=== PATIENT | female | born 1950 | race Caucasian/White ===

== ENCOUNTER 2017-03-10 19:31 | Inpatient (IN) | payer MEDICARE, OTHER ==
[~2017-03-10] VITALS: Ht 157.5 cm; Wt 51.7 kg
--- NOTE | 2017-03-10 19:35 | NUR ---
67 YO FEMALE BB [id number]. EPIGASTRIC PAIN & N/V x2 TODAY. PT ASSISTED TO ER BED BY EMS. PT GOWNED, PLACED ON FABRICATOR INDUSTRIAL FURNACE. SKIN WARM AND DRY, RR EVEN AND UNLABORED. AWAITING ORDERS FROM PROVIDER, WILL CONTINUE TO MONITOR
--- NOTE | 2017-03-10 19:52 | NUR ---
EMT AT BED SIDE FOR EKG
[2017-03-10] MEDS ORDERED: METO200T35 PO (19:58)
[2017-03-10] MEDS ORDERED: CITA10TA17 PO (19:58)
[2017-03-10] MEDS ORDERED: ZOLP5TAB2 PO (19:58)
[2017-03-10] MEDS ORDERED: LEVO75TA7 PO (19:58)
[2017-03-10] MEDS ORDERED: LOSA50TA21 PO (19:58)
[2017-03-10] MEDS ORDERED: RIVA10TA PO (19:58)
[2017-03-10] MEDS ORDERED: ATOR40TA PO (19:58)
[2017-03-10] MEDS ORDERED: MORPHINE SULFATE INJ 4 MG/ML DISP.SYRIN ONE ×2 (20:04→21:23)
[2017-03-10] MEDS ORDERED: IV SET PRIMARY 1 EA INFUS.SET MC ONE (20:05)
[2017-03-10] MEDS ORDERED: NITROGLYCERIN PACKET 1 GM PACKET ONE (20:05)
[2017-03-10] MEDS ORDERED: ONDANSETRON HCL/PF 4 MG/2 ML VIAL ONE ×2 (20:05→21:23)
[2017-03-10] MEDS ORDERED: IV NS 0.9% 1,000 ML ONE (20:05)
[2017-03-10 20:22] LABS: BASOPHILS # (AUTO) 0.3 /CMM (0.0-0.2); BASOPHILS % (AUTO) 3.6 % (0.0-2.0); EOSINOPHILS # (AUTO) 0.1 /CMM (0.0-0.7); EOSINOPHILS % (AUTO) 1.2 % (0.0-6.0); HEMATOCRIT 43 % (33-45); HEMOGLOBIN 13.9 g/dL (11.5-14.8); LYMPHOCYTES # (AUTO) 1.9 /CMM (0.8-4.8); LYMPHOCYTES % (AUTO) 23.6 % (20.0-44.0); MEAN CORPUSCULAR HEMOGLOBIN 28 PG (26.0-33.0); MEAN CORPUSCULAR HGB CONC 32 g/dl (31.0-36.0); MEAN CORPUSCULAR VOLUME 86 fL (82-100); MONOCYTES # (AUTO) 0.4 /CMM (0.1-1.30); MONOCYTES % (AUTO) 4.9 % (2.0-12.0); NEUTROPHILS # (AUTO) 5.4 /CMM (1.8-8.9); NEUTROPHILS % (AUTO) 66.7 % (43.0-81.0); PLATELET COUNT (AUTO) 313 /CMM (150-450); RDW COEFFICIENT OF VARIATION 13.6 (11.5-15.0); RED BLOOD CELL COUNT(AUTO) 5.02 MIL/uL (4.0-5.2); WHITE BLOOD COUNT (AUTO) 8.1 K/uL (4.3-11.0)
--- NOTE | 2017-03-10 20:23 | NUR ---
18G RIGHT AC IV STARTED, BLOOD SAMPLE OBATIEND AND SENT TO LAB. MEDICATED PT ORDERED
[2017-03-10] MEDS ORDERED: ONDANSETRON HCL/PF 4 MG/2 ML VIAL IVP ONE (20:30)
[2017-03-10] MEDS ORDERED: MORPHINE SULFATE INJ 2 MG/ML DISP.SYRIN IV ONE ×2 (20:30→21:30)
[2017-03-10] MEDS ORDERED: IV NS 0.9% 1,000 ML BAG IV ONE (20:30)
[2017-03-10] MEDS ORDERED: NITROGLYCERIN PACKET 1 GM PACKET TOP ONE (20:30)
[2017-03-10 20:33] LABS: CALCIUM, SERUM 9.1 mg/dL (8.5-10.1); CARBON DIOXIDE 32 mmol/L (21-32); CHLORIDE 103 mmol/L (98-107); CREATININE 0.8 mg/dL (0.6-1.3); GLUCOSE 99 mg/dL (74-106); POTASSIUM 3.5 mmol/L (3.5-5.1); SODIUM SERUM 139 mmol/L (136-145); UREA NITROGEN, BLOOD 25 mg/dL (7-18)
[2017-03-10 20:37] LABS: PROTHROMBIN TIME 10.4 SECS (9.5-12.7)
[2017-03-10 20:42] LABS: TROPONIN I < 0.017 ng/mL (0.00-0.056)
--- NOTE | 2017-03-10 21:20 | NUR ---
CALLED NURSING SUP. FOR TELE BED
--- NOTE | 2017-03-10 21:35 | NUR ---
MEDICATED PT PER VERBAL ORDER; 4 MG ZOFRAN IVP
--- NOTE | 2017-03-10 21:35 | NUR ---
REPORT GIVEN TO RN FOR TELE ADMISSION
[2017-03-10] MEDS: ONDANSETRON HCL/PF 4 MG/2 ML VIAL IVP PRN (21:56)
[2017-03-10 22:00] VITALS: BP 159/85
[2017-03-10] MEDS ORDERED: Z GUARD REMEDY 2 OZ OINT TP PRN (22:00)
[2017-03-10] MEDS: ATORVASTATIN 40 MG TABLET PO SCH (22:00)
[2017-03-10] MEDS ORDERED: ZOLPIDEM TARTRATE 5 MG TABLET PO PRN ×2 (22:00)
[2017-03-10] MEDS ORDERED: MAGNESIUM HYDROXIDE 30 ML UDC PO PRN (22:00)
[2017-03-10] MEDS ORDERED: ACETAMINOPHEN 325 MG TABLET PO PRN (22:00)
[2017-03-10] MEDS ORDERED: ONDANSETRON HCL/PF 4 MG/2 ML VIAL IV PRN (22:00)
--- NOTE | 2017-03-10 22:00 | NUR ---
RECEIVED PATIENT FROM ER, WITH DX OF CHEST PAIN, ALERT AND ORIENTED X4, CALM, NO SOB, NO RESPIRATORY DISTRESS, 02 SAT AT ROOM AIR 96%, LUNG SOUNDS ARE CLEAR, ABDOMEN SOFT AND NON-TENDER, COMPLAINING OF EPIGASTRIC PAIN OF 4/10. RECEIVED ZOFRAN AND MORPHINE IN ER. RIGHT AC PERIPHERAL LINE IS PATENT AND INFUSING WELL WITH NS. GENERAL SKIN CONDITION IS CLEAR AND INTACT. STEADY GAIT, CONTINENT OF BLADDER AND BOWEL, INDEPENDENT WITH ADLS. PATIENT REQUESTED PM MEDICATIONS TO BE GIVEN, ORIENTED TO ROOM, USE OF CALL LIGHT, WILL CONTINUE TO MONITOR.
[2017-03-10 22:30] VITALS: BP 159/85
--- NOTE | 2017-03-10 22:47 | NUR ---
NEW ORDERS FROM DR. BRADLEY, TO CONTINUE HOME MEDICATIONS INCLUDING FLECAINIDE 100 MG PO Q12 HRS AND CHANGE THE FREQUENCY OF LOSARTAN 50 MG TO Q12HRS. ORDERS NOTED AND CARRIED OUT.
[2017-03-10] MEDS ORDERED: ATORVASTATIN 40 MG TABLET ONE (22:51)
[2017-03-10] MEDS ORDERED: LOSARTAN POTASSIUM 50 MG TABLET ONE (22:51)
[2017-03-10] MEDS ORDERED: MAG HYDROX/AL HYDROX/SIMETH 30 ML UDC ONE (23:00)
[2017-03-10] MEDS ORDERED: FLECAINIDE ACETATE (100 MG) 100 MG TABLET PO SCH (23:00)
[2017-03-10] MEDS: MAG HYDROX/AL HYDROX/SIMETH 30 ML UDC PO PRN (23:08)
[2017-03-10] MEDS: LOSARTAN POTASSIUM 50 MG TABLET PO SCH (23:09)
--- NOTE | 2017-03-10 23:15 | NUR ---
LIPITOR NOT GIVEN, PER PATIENT, TAKEN IN AM. FLECAINIDE NOT GIVEN, NON FORMULARY MEDICATION
[2017-03-11] VITALS: BP 131/65
[2017-03-11] MEDS ORDERED: MORPHINE SULFATE INJ 2 MG/ML DISP.SYRIN ONE ×2 (00:37→02:54)
[2017-03-11] MEDS: MORPHINE SULFATE INJ 2 MG/ML DISP.SYRIN IV PRN ×3 (00:45→22:16)
[2017-03-11] MEDS ORDERED: IV SET PRIMARY PUMP SET 1 EA INFUS.SET MC ONE (01:45)
--- NOTE | 2017-03-11 02:38 | NUR ---
PATIENT MOVED TO ROOM 309-1.
--- NOTE | 2017-03-11 03:27 | NUR ---
TROPONIN LEVEL DRAWN, NEGATIVE.
--- NOTE | 2017-03-11 05:38 | NUR ---
PATIENT SAYS "I FEEL MUCH BETTER." NO NAUSEA REPORTED
[2017-03-11 05:39] VITALS: BP 129/75
--- NOTE | 2017-03-11 06:48 | NUR ---
PATIENT ALERT AND AWAKE, NO SOB, NO RESPIRATORY DISTRESS, ON TELE MONITORING, SINUS BRADYCARDIA WITH HR IN THE 50'S. COMPLAINING OF CHEST PAIN, TROPONIN LEVEL IS NEGATIVE TAKEN X2, RIGHT AC PERIPHERAL LINE IS PATENT AND INTACT, NEEDS ATTENDED, CALL LIGHT WITHIN REACH
[2017-03-11] MEDS ORDERED: NITROGLYCERIN 0.4 MG/TAB BOTTLE ONE (07:00)
[2017-03-11] MEDS: NITROGLYCERIN 0.4 MG/TAB BOTTLE SL PRN ×8 (07:10→23:24)
--- NOTE | 2017-03-11 07:27 | NUR ---
SEEN BY DR. ESPOSITO, AFTER MD LEFT, PT FEELING CHEST PAIN DESCRIBED HEAVY AND WITH BURNING SENSATION. MD ORDERED NITRO SL AND EKG STAT. PATIENT GIVEN NITRO SL X2 5 MINUTES APART, PT VERBALIZED FEELING A LITTLE BETTER. STARTED NEW LINE TO LEFT WRIST #22.
[2017-03-11] MEDS ORDERED: NITROGLYCERIN 0.4 MG/TAB BOTTLE SL PRN (07:30)
[2017-03-11] MEDS: PANTOPRAZOLE 40 MG TABLET.DR PO SCH (07:30)
[2017-03-11 07:37] LABS: BASOPHILS % (AUTO) 0.3 % (0.0-2.0); EOSINOPHILS # (AUTO) 0.1 /CMM (0.0-0.7); HEMATOCRIT 42 % (33-45); HEMOGLOBIN 13.7 g/dL (11.5-14.8); LYMPHOCYTES # (AUTO) 1.9 /CMM (0.8-4.8); LYMPHOCYTES % (AUTO) 19.1 % (20.0-44.0); MEAN CORPUSCULAR HEMOGLOBIN 29 PG (26.0-33.0); MEAN CORPUSCULAR HGB CONC 33 g/dl (31.0-36.0); MEAN CORPUSCULAR VOLUME 87 fL (82-100); MONOCYTES # (AUTO) 0.6 /CMM (0.1-1.30); MONOCYTES % (AUTO) 6.2 % (2.0-12.0); NEUTROPHILS # (AUTO) 7.2 /CMM (1.8-8.9); NEUTROPHILS % (AUTO) 73.4 % (43.0-81.0); PLATELET COUNT (AUTO) 280 /CMM (150-450); RDW COEFFICIENT OF VARIATION 14.3 (11.5-15.0); RED BLOOD CELL COUNT(AUTO) 4.78 MIL/uL (4.0-5.2); WHITE BLOOD COUNT (AUTO) 9.8 K/uL (4.3-11.0)
--- NOTE | 2017-03-11 07:45 | NUR ---
OCCASIONAL BABYSITTER OPENING NOTE PATIENT IS ALERT AND ORIENTED x4. NO PAIN AT THIS TIME. NO SOB OR DISTRESS NOTED. NO CHEST PAIN AT THIS TIME. CALL LIGHT WITHIN REACH. SAFETY MEASURES IMPLEMENTED. ABLE TO COMMUNICATE NEEDS. IV INTACT AND PATENT NO REDNESS OR SWELLING NOTED. MYOCARDIAL STRESS TEST FOR 03/12. CONSENT IN CHART. WILL CONTINUE TO MONITOR
[2017-03-11 07:56] LABS: CALCIUM, SERUM 8.9 mg/dL (8.5-10.1); CREATININE 0.6 mg/dL (0.6-1.3); MAGNESIUM 2.3 mg/dL (1.8-2.4); PHOSPHORUS 3.8 mg/dL (2.5-4.9); POTASSIUM 3.4 mmol/L (3.5-5.1)
[2017-03-11] MEDS: ATORVASTATIN 40 MG TABLET PO SCH (08:03)
[2017-03-11] MEDS: CITALOPRAM HYDROBROMIDE 10 MG TABLET PO SCH (08:04)
[2017-03-11] MEDS: LEVOTHYROXINE SODIUM 75 MCG TABLET PO SCH (08:04)
[2017-03-11] MEDS: LOSARTAN POTASSIUM 50 MG TABLET PO SCH ×2 (08:04→23:17)
[2017-03-11] MEDS: HYDROCODONE/APAP 5/325MG 1 EACH TABLET PO PRN ×3 (08:05→23:44)
[2017-03-11 08:40] LABS: ALBUMIN 3.4 g/dL (3.4-5.0); BILIRUBIN,DIRECT 0.2 mg/dL (0.0-0.2); BILIRUBIN,TOTAL 1.1 mg/dL (0.2-1.0); TOTAL PROTEIN, SERUM 7.2 g/dL (6.4-8.2)
[2017-03-11 08:46] LABS: THYROID STIMULATING HORMONE 0.52 uIU/mL (0.358-3.74)
[2017-03-11] MEDS: METOPROLOL SUCCINATE 50 MG TAB.SR.24H PO SCH (09:00)
[2017-03-11] MEDS ORDERED: LOSARTAN POTASSIUM 50 MG TABLET PO SCH (09:00)
[2017-03-11] MEDS ORDERED: RIVAROXABAN 10 MG TABLET PO SCH (09:00)
--- NOTE | 2017-03-11 09:00 | NUR ---
RN NOTE HELD PATIENT'S BP MED DUE TO HEART RATE BEING TOO LOW TO GIVE. ALSO INFORMED DR. MATHUR ABOUT PATIENT TAKING LIOTHYRONINE FOR HER THYROID, NEW ORDER TO CONTINUE MEDICATION STARTING TOMORROW MORNING 03/12 AND TSH LEVEL TO BE DRAWN. ALL ORDERS NOTED AND CARRIED OUT.
[2017-03-11] MEDS ORDERED: POTASSIUM CHLORIDE 20 MEQ TAB.PRT.SR PO SCH (11:30)
[2017-03-11 12:00] VITALS: BP 123/60
[2017-03-11 16:00] VITALS: BP 128/70
[2017-03-11] MEDS: RIVAROXABAN 15 MG TABLET PO SCH (17:10)
--- NOTE | 2017-03-11 18:46 | NUR ---
STRAP BUCKLER CLOSING NOTE PATIENT IS ALERT AND ORIENTED x4. NO PAIN AT THIS TIME. NO SOB OR DISTRESS NOTED. CALL LIGHT WITHIN REACH AT ALL TIMES. SAFETY MEASURES IMPLEMENTED. ALL DUE MEDICATIONS GIVEN ORDERED. ABLE TO COMMUNICATE. IV INTACT AND PATENT NO REDNESS OR SWELLING NOTED. STRESS TEST IN THE MORNING 03/12/17, NPO AFTER MIDNIGHT NO CAFFEINE, CONSENT OBTAINED. WILL ENDORSE TO EXPERIMENTAL PLASTICS FABRICATOR NURSE
--- NOTE | 2017-03-11 19:40 | NUR ---
RN OPENING NOTES RECEIVED REPORT FROM ROBERTO RN. Pt IS A/OX4, VERBAL, ABLE TO MAKE NEEDS KNOWN. TELE READING SB 55 (IS BASELINE). NO S/S OF ACUTE DISTRESS OR SOB NOTED. IV ACCESS RFA #22G. SAFETY MEASURES IN PLACE. BED LOW, LOCKED, HOB ELEVATED, SIDE RAILS UP, CALL LIGHT AND BEDSIDE TABLE WITHIN REACH. WILL CONTINUE TO MONITOR Pt THROUGHOUT THE NIGHT FOR SAFETY. Pt NPO AT MIDNIGHT FOR STRESS TEST TOMORROW IN THE AM.
[2017-03-11 20:00] VITALS: BP 144/74
[2017-03-11] MEDS: ONDANSETRON HCL/PF 4 MG/2 ML VIAL IVP PRN (20:45)
[2017-03-11 22:00] VITALS: BP 144/74
[2017-03-12] VITALS: BP 140/71
[2017-03-12 04:00] VITALS: BP 155/73
[2017-03-12 06:35] LABS: BASOPHILS % (AUTO) 0.2 % (0.0-2.0); EOSINOPHILS # (AUTO) 0.1 /CMM (0.0-0.7); EOSINOPHILS % (AUTO) 1.4 % (0.0-6.0); HEMATOCRIT 43 % (33-45); LYMPHOCYTES # (AUTO) 1.8 /CMM (0.8-4.8); LYMPHOCYTES % (AUTO) 18.2 % (20.0-44.0); MEAN CORPUSCULAR HEMOGLOBIN 28 PG (26.0-33.0); MEAN CORPUSCULAR HGB CONC 33 g/dl (31.0-36.0); MEAN CORPUSCULAR VOLUME 87 fL (82-100); MONOCYTES # (AUTO) 0.5 /CMM (0.1-1.30); MONOCYTES % (AUTO) 5.5 % (2.0-12.0); NEUTROPHILS # (AUTO) 7.3 /CMM (1.8-8.9); NEUTROPHILS % (AUTO) 74.7 % (43.0-81.0); PLATELET COUNT (AUTO) 256 /CMM (150-450); RDW COEFFICIENT OF VARIATION 14.1 (11.5-15.0); RED BLOOD CELL COUNT(AUTO) 4.93 MIL/uL (4.0-5.2); WHITE BLOOD COUNT (AUTO) 9.7 K/uL (4.3-11.0)
--- NOTE | 2017-03-12 06:40 | NUR ---
RN CLOSING NOTES NO SIGNIFICANT CHANGES TO Pt's CONDITION. ALL NEEDS MET AND ATTENDED TO. NO S/S OF SEVERE ACUTE DISTRESS OR SOB NOTED DURING THE NIGHT. SAFETY MEASURES IN PLACE. WILL ENDORSE TO DAYSHIFT RN FOR Pt's MARKELL. TELE READING SB 50's (Pt's BASELINE). STRESS TEST SCHEDULED FOR TODAY NPO SINCE MIDNIGHT TONIGHT.
[2017-03-12 06:51] LABS: TROPONIN I < 0.017 ng/mL (0.00-0.056)
[2017-03-12 06:53] LABS: ALANINE AMINOTRANSFERASE 39 U/L (12-78); ALBUMIN 3.1 g/dL (3.4-5.0); ALKALINE PHOSPHATASE 100 U/L (46-116); ASPARTATE AMINOTRANSFERASE 25 U/L (15-37); CALCIUM, SERUM 8.8 mg/dL (8.5-10.1); CARBON DIOXIDE 34 mmol/L (21-32); CHLORIDE 106 mmol/L (98-107); CREATININE 0.6 mg/dL (0.6-1.3); GLUCOSE 101 mg/dL (74-106); MAGNESIUM 2.4 mg/dL (1.8-2.4); PHOSPHORUS 3.3 mg/dL (2.5-4.9); POTASSIUM 3.5 mmol/L (3.5-5.1); SODIUM SERUM 143 mmol/L (136-145); TOTAL PROTEIN, SERUM 6.8 g/dL (6.4-8.2); UREA NITROGEN, BLOOD 15 mg/dL (7-18)
[2017-03-12 07:21] VITALS: BP 141/76
[2017-03-12] MEDS: LEVOTHYROXINE SODIUM 75 MCG TABLET PO SCH (07:30)
[2017-03-12] MEDS: PANTOPRAZOLE 40 MG TABLET.DR PO SCH (07:30)
[2017-03-12] MEDS: LIOTHYRONINE SODIUM (5 MCG/TA 5 MCG TABLET PO SCH (07:30)
--- NOTE | 2017-03-12 07:41 | NUR ---
SUPERVISING DEPUTY OPENING NOTE PATIENT IS ALERT AND ORIENTED x4. NO PAIN AT THIS TIME. NO SOB OR DISTRESS NOTED. CALL LIGHT WITHIN REACH. SAFETY MEASURES IMPLEMENTED. ABLE TO COMMUNICATE NEEDS. IV INTACT AND PATENT NO REDNESS OR SWELLING NOTED. NPO FOR CARDIAC STRESS TEST THIS MORNING. LABS PENDING THIS MORNING. ABLE TO COMMUNICATE NEEDS. WILL CONTINUE TO MONITOR.
[2017-03-12] MEDS: ATORVASTATIN 40 MG TABLET PO SCH (09:00)
[2017-03-12] MEDS: FLECAINIDE ACETATE (100 MG) 100 MG TABLET PO SCH ×2 (09:00→21:19)
[2017-03-12] MEDS: CITALOPRAM HYDROBROMIDE 10 MG TABLET PO SCH (09:00)
[2017-03-12] MEDS: METOPROLOL SUCCINATE 50 MG TAB.SR.24H PO SCH (09:00)
[2017-03-12] MEDS: LOSARTAN POTASSIUM 50 MG TABLET PO SCH ×2 (09:00→21:18)
[2017-03-12] MEDS: MAG HYDROX/AL HYDROX/SIMETH 30 ML UDC PO PRN (09:09)
--- NOTE | 2017-03-12 09:20 | NUR ---
RN NOTE PATIENT WENT DOWN TO NUCLEAR MEDICINE TO HAVE STRESS TEST DONE. PATIENT IS ALERT AND ORIENTED x4. NO PAIN AT THIS TIME. NO SOB OR DISTRESS NOTED. ALL VITALS ARE STABLE.
[2017-03-12] MEDS ORDERED: MAG HYDROX/AL HYDROX/SIMETH 30 ML UDC PO PRN (09:30)
[2017-03-12] MEDS ORDERED: REGADENOSON 0.4 MG/5 ML DISP.SYRIN IVP ONE (10:30)
--- NOTE | 2017-03-12 10:40 | NUR ---
DELIVERY TABLE OPERATOR NOTES PER DR. VAIBHAV FONSECA TO DC TELEMETRY.
--- NOTE | 2017-03-12 11:00 | NUR ---
RN NOTE PATIENT BACK FROM STRESS TEST, STILL NEEDS TO BE NPO WILL HAVE EGD DONE TODAY.
[2017-03-12] MEDS: ONDANSETRON HCL/PF 4 MG/2 ML VIAL IVP PRN (11:18)
[2017-03-12] MEDS: MORPHINE SULFATE INJ 2 MG/ML DISP.SYRIN IV PRN ×2 (11:18→19:53)
[2017-03-12] MEDS ORDERED: MORPHINE SULFATE INJ 2 MG/ML DISP.SYRIN IV PRN (14:00)
[2017-03-12 16:00] VITALS: BP 133/86
[2017-03-12] MEDS: RIVAROXABAN 15 MG TABLET PO SCH (17:00)
--- NOTE | 2017-03-12 18:30 | NUR ---
RN NOTE PATIENT HEADED DOWN TO SURGERY FOR EGD PROCEDURE. CONSENTS OBTAINED. VITALS ARE STABLE. PATIENT IS ALERT AND ORIENTED x4. NO PAIN AT THIS TIME. NO SOB OR DISTRESS NOTED.
--- NOTE | 2017-03-12 18:35 | NUR ---
COMMISSION CLERK CLOSING NOTE PATIENT IS ALERT AND ORIENTED X4.NO PAIN AT THIS TIME. NO SOB OR DISTRESS NOTED. CALL LIGHT WITHIN REACH AT ALL TIMES. NPO DUE TO EGD PROCEDURE. PATIENT IN SURGERY. VITALS ARE STABLE. IV INTACT AND PATENT NO REDNESS OR SWELLING NOTED. WILL ENDORSE TO SADDLE CUTTER NURSE
[2017-03-12 20:00] VITALS: BP 147/72
--- NOTE | 2017-03-12 20:25 | NUR ---
MS RN NOTES PT C/O CHEST PAIN. MORPHINE INEFFECTIVE PER PT. STAT EKG DONE. CALLED DR. BRADLEY CRIMINAL PSYCHOLOGIST FOR [facility] [employer]. AWAITING FOR RESPONSE. WILL CONTINUE TO MONITOR.
[2017-03-12] MEDS: NITROGLYCERIN 0.4 MG/TAB BOTTLE SL PRN (20:50)
--- NOTE | 2017-03-12 20:50 | NUR ---
MS RN NOTES PT STILL C/O CP. 06/23. NITRO GIVEN ORDERED. WILL CONTINUE TO MONITOR. REPAGED DR. BRADLEY. AWAITING FOR CALLBACK.
--- NOTE | 2017-03-12 21:45 | NUR ---
MS RN NOTES DR. BRADLEY CALLED BACK. MADE AWARE RE PT'S CONDITION. WITH NEW ORDERS MADE. ORDERS NOTED AND CARRIED OUT. WILL CONTINUE TO MONITOR.
[2017-03-12] MEDS ORDERED: HYDROMORPHONE 1 MG/1 ML DISP.SYRIN ONE (21:49)
[2017-03-12] MEDS: HYDROMORPHONE 1 MG/1 ML DISP.SYRIN IV PRN (21:55)
--- NOTE | 2017-03-12 23:25 | NUR ---
MS RN NOTES AWAKE & RESPONSIVE. NOT IN ANY DISTRESS. NO SOB NOTED. DENIES ANY PAIN OR DISCOMFORT AT THIS TIME. WITH IV-HL PATENT & INTACT. CALL LIGHT WITHIN REACH. BED IN LOWEST POSITION. SR UP X 2 FOR SAFETY. REPORT GIVEN TO JAYESH IBARRA FOR CONTINUITY OF CARE.
--- NOTE | 2017-03-12 23:27 | NUR ---
RN INITIAL NOTE RECEIVED REPORT FROM MIKEY IBARRA AT 2230 PT NO S/S OF RESPIRATORY DISTRESS OR SOB. IV SITE INTACT WITH NO S/S OF INFILTRATION NOTED. SAFE ENVIRONMENT PROVIDED FREE OF CLUTTERS .BED IN LOCKED, LOW POSITION. CALL LIGHT WITHIN EASY REACH. WILL CONTINUE TO MONITOR.
[2017-03-13] MEDS ORDERED: HYDROMORPHONE 1 MG/1 ML DISP.SYRIN ONE (06:37)
--- NOTE | 2017-03-13 06:42 | NUR ---
MS RN CLOSING NOTES PATIENT COMFORTABLY ASLEEP AND EASILY AWAKEN, HEAD OF BED FOR BETTER LUNG EXPANSION. ALERT AND VERBALLY RESPONSIVE X 4, IV SITE NO S/S OF INFILTRATED, PATIENT DENIES PAIN AT THIS TIME. RESPIRATIONS EVEN AND UNLABORED. LUNG SOUNDS CLEAR UPON AUSCULTATION, NO S/S OF ACUTE DISTRESS, NO SOB, NO COUGH, NO CONGESTION, NO COMPLAINS OF CHEST PAIN, SKIN WARM AND DRY TO TOUCH, AFEBRILE, ALL NURSING CARE NEEDS PROVIDED AND RENDERED, KEPT CLEAN AND DRY AND COMFORTABLE, GOOD SKIN ARE PROVIDED. FREQUENT VISUAL CHECK DONE FOR SAFETY EVERY 2 HOURS. SAFE HAZARD FREE ENVIRONMENT PROVIDED. CALL LIGHT WITHIN EASY TO REACH, ON LOW BED AT ALL TIMES TO ENSURE SAFETY, WILL ENDORSE TO THE NEXT SHIFT CONTINUE PLAN OF CARE. TOLERATING ROOM AIR 02 SAT 98% R.A
[2017-03-13] MEDS: HYDROMORPHONE 1 MG/1 ML DISP.SYRIN IV PRN ×2 (06:49→13:35)
--- NOTE | 2017-03-13 07:50 | NUR ---
RN OPENING NOTES RECEIVED PATIENT IN BED, AWAKE, HEAD OF BED ELEVATED. NO SOB OR DISTRESS NOTED. A/O X 4, VERBALLY RESPONSIVE AND ABLE TO MAKE NEEDS KNOWN. IV INTACT AND PATENT. KEPT PATIENT CLEAN AND COMFORTABLE IN BED, CALL LIGHT WITHIN PATIENT REACH, WILL CONTINUE TO MONITOR ACCORDINGLY.
[2017-03-13 08:00] VITALS: BP 123/69
[2017-03-13] MEDS: METOPROLOL SUCCINATE 50 MG TAB.SR.24H PO SCH (09:00)
[2017-03-13] MEDS: ATORVASTATIN 40 MG TABLET PO SCH (09:11)
[2017-03-13] MEDS: PANTOPRAZOLE 40 MG TABLET.DR PO SCH (09:11)
[2017-03-13] MEDS: CITALOPRAM HYDROBROMIDE 10 MG TABLET PO SCH (09:11)
[2017-03-13] MEDS: LEVOTHYROXINE SODIUM 75 MCG TABLET PO SCH (09:11)
[2017-03-13] MEDS: LIOTHYRONINE SODIUM (5 MCG/TA 5 MCG TABLET PO SCH (09:12)
[2017-03-13] MEDS: FLECAINIDE ACETATE (100 MG) 100 MG TABLET PO SCH (09:12)
[2017-03-13 09:13] VITALS: BP 123/69
[2017-03-13] MEDS: LOSARTAN POTASSIUM 50 MG TABLET PO SCH (09:13)
--- NOTE | 2017-03-13 10:19 | NUR ---
RN NOTES DR. MATHUR ORDERED TO DO CT SCAN CHEST STAT AND AFTER THAT POSSIBLE DISCHARGE.
--- NOTE | 2017-03-13 12:45 | NUR ---
RN NOTES PATIENT WITH FRIEND AT BEDSIDE WATCHING TV IN STABLE CONDITION.
--- NOTE | 2017-03-13 19:19 | NUR ---
SKI LIFT OPERATOR INSTRUCTIONS DISCHARGE INSTRUCTIONS GIVEN TO PATIENT AND ABLE TO UNDERSTAND INSTRUCTIONS AND SIGNED DISCHARGE PAPER AND BELONGINGS LIST. PATIENT LEFT WALKING WITH HER SISTER IN STABLE CONDITION. NO SOB OR DISTRESS NOTED, NO COMPLAIN OF PAIN NOR CHEST PAIN. VITALS SIGNS CHECKED AND RECORDED. MD AND CHARGE NURSE AWARE.
== END 2017-03-13 16:33 | disposition home or self-care (01) | DRG 206 ==
LOC: ER 19:32 → TELE 21:25 → MED 03-12 10:11
PROVIDERS: ADMIT Internal Medicine; ATTEND Internal Medicine
PROC: 0DB68ZX Excision of Stomach, Via Natural or Artificial Opening Endoscopic, Diagnostic (ICD-10-PCS; principal; 2017-03-12 18:55)
DX: M94.0 Chondrocostal junction syndrome [Tietze] (principal); E03.9 Hypothyroidism, unspecified; E78.5 Hyperlipidemia, unspecified; F32.9 Major depressive disorder, single episode, unspecified; F41.9 Anxiety disorder, unspecified; I10 Essential (primary) hypertension; I25.10 Atherosclerotic heart disease of native coronary artery without angina pectoris; I25.2 Old myocardial infarction; I48.91 Unspecified atrial fibrillation; Z79.01 Long term (current) use of anticoagulants; K21.9 Gastro-esophageal reflux disease without esophagitis
CPT/HCPCS: 36415; 71010-TC; 71250-TC; 76700-TC; 80048-TC; 80053-TC; 80061-TC; 80076-TC; 83735-TC; 84100-TC; 84439-TC; 84443-TC; 84484-TC; 85025-TC; 85730-TC; 87081-TC; 93307-TC; A4606; A9502; J1170; J2270; J2405; J2704; J2785; J7030; Z7610

== ENCOUNTER 2024-04-27 08:55 | Emergency (ER) | payer BC, MEDICARE ==
[~2024-04-27] VITALS: Ht 157.5 cm; Wt 54.9 kg
[~2024-04-27 08:55] MED LIST: ATOR40TA PO; CITA10TA17 PO; LEVO75TA7 PO; LOSA50TA39 PO; METO200T49 PO; RIVA10TA PO; ZOLP5TAB2 PO
[2024-04-27] MEDS ORDERED: CYCLOBENZAPRINE 10 MG TABLET ONE (09:26)
[2024-04-27] MEDS ORDERED: KETOROLAC TROMETHAMINE INJ 30 MG/ML VIAL ONE (09:26)
[2024-04-27] MEDS: CYCLOBENZAPRINE 10 MG TABLET PO ONE (09:30)
[2024-04-27] MEDS: KETOROLAC TROMETHAMINE INJ 60 MG/2 ML VIAL IM ONE (09:30)
[2024-04-27] MEDS ORDERED: CYCL5TAB PO (10:41)
[2024-04-27 10:56] VITALS: BP 91/61; TEMP 98.2; O2SAT 97
== END 2024-04-27 10:57 | disposition home or self-care (01) ==
LOC: ER 09:08
DX: M54.6 Pain in thoracic spine (principal); I10 Essential (primary) hypertension; I25.2 Old myocardial infarction; G43.909 Migraine, unspecified, not intractable, without status migrainosus; E03.9 Hypothyroidism, unspecified; Z98.890 Other specified postprocedural states; Z79.899 Other long term (current) drug therapy
CPT/HCPCS: 99283; 71045; 96372; 93005; J1885